=== PATIENT | female | born 1995 | race Caucasian/White ===

== ENCOUNTER 2019-11-05 01:38 | Emergency (ER) | payer BC ==
[2019-11-05 01:55] VITALS: BP 134/78; PULSE 81; RESP 18; TEMP 98.2
--- NOTE | 2019-11-05 01:57 | ED ---
General Adult HPI - General Chief complaint: Extremity Injury, Upper Stated complaint: Left arm pain Time Seen by Provider: 11/05/19 01:56 Source: patient Mode of arrival: ambulatory Limitations: physical limitation - History of Present Illness Initial comments: Renea is a previously healthy 24-year-old female who presents the ER today for evaluation of aching pain radiating from her wrist of her arm. Patient reports she's intermittently had pain similar to this in both hands however today she went hiking with her mom. She states she didn't have any discomfort while kayaking but since then has been having aching pain that radiates from her left wrist up her arm towards her elbow. Patient is taking Tylenol with no relief. She denies any falls or injuries. Patient works as a grocery store broadcast checker and does have repetitive motion of her hands throughout the day all day. - Related Data Allergies Allergy/AdvReac Type Severity Reaction Status Date / Time No Known Allergies Allergy Verified 11/05/19 01:54 Review of Systems ROS Statement: Those systems with pertinent positive or pertinent negative responses have been documented in the HPI. ROS Other: All systems not noted in ROS Statement are negative. Past Medical History Past Medical History: No Reported History History of Any Multi-Drug Resistant Organisms: None Reported Past Surgical History: No Surgical Hx Reported Past Psychological History: No Psychological Hx Reported Smoking Status: Never smoker Past Alcohol Use History: Occasional Past Drug Use History: None Reported General Exam - General Exam Comments Initial Comments: Physical Exam GENERAL: Patient is well-developed and well-nourished. Patient is nontoxic and well-hydrated and is in no distress. HENT: Normocephalic, Atraumatic. EYES: PERRL, EOMI PULMONARY: Unlabored respirations. CARDIOVASCULAR: RRR Warm and well perfused extremities ABDOMEN: Non-distended SKIN: No rashes or bruising : Deferred NEUROLOGIC: Alert and oriented Normal speech Normal gait MUSCULOSKELETAL: Moving all extremities with no apparent injury Tinel's positive on bilateral wrist the patient reports worsening discomfort on left arm PSYCHIATRIC: No SI/HI Limitations: physical limitation Course Vital Signs 11/05/19 01:52 Temperature 98.2 F Pulse Rate 81 Respiratory 18 Rate Blood Pressure 134/78 O2 Sat by Pulse 99 Oximetry Medical Decision Making - Medical Decision Making The patient was seen and evaluated, history was obtained from the patient History and physical exam are concerning for repetitive use injury, patient has reproducible discomfort positive Tinel's sign. I discussed with the patient that she is likely suffering from an acute exacerbation of carpal tunnel. Patient is given a printed copy of the [place] out of orthopedic surgery, exercise recommendations. She advised to continue these exercises, follow with her primary care physician to discuss the need for possibly wearing a brace at night if she has persistent symptoms and follow with orthopedics if she has persistent symptoms physician discuss surgical management. All questions pertaining care were answered return parameters were discussed patient was discharged home in stable condition. Disposition Clinical Impression: Carpal tunnel syndrome of left wrist Disposition: HOME SELF-CARE Condition: Stable Instructions (If sedation given, give patient instructions): Paresthesia (ED), Carpal Tunnel Surgery (DC) Is patient prescribed a controlled substance at d/c from ED?: No Referrals: None,Stated [Primary Care Provider] - 1-2 days
== END 2019-11-05 02:14 | disposition home or self-care (01) ==
LOC: EC 01:38
DX: G56.02 Carpal tunnel syndrome, left upper limb (principal)
CPT/HCPCS: 99283

== ENCOUNTER → 2023-01-09 | Outpatient (CLI) | payer BC ==
[2023-01-10 02:37] LABS: Alternaria alternata IgE 0.24 kU/L; Aspergillus fumagatus IgE <0.10 kU/L; Birch IgE <0.10 kU/L; Cat Epith & Dander IgE 2.52 kU/L; Cladosporian herbarum IgE <0.10 kU/L; Clam IgE <0.10 kU/L; Cockroach IgE <0.10 kU/L; Codfish IgE <0.10 kU/L; Dermato. farinae IgE <0.10 kU/L; Dog Dander IgE 4.69 kU/L; Egg White IgE <0.10 kU/L; Elm IgE <0.10 kU/L; Maple (Box Elder) IgE <0.10 kU/L; Oak IgE <0.10 kU/L; Peanut IgE <0.10 kU/L; Ragweed,Common IgE <0.10 kU/L; Red Top (Bentgrass) IgE 0.54 kU/L; Scallop IgE <0.10 kU/L; Shrimp IgE <0.10 kU/L; Soybean IgE <0.10 kU/L; Walnut IgE (Food) <0.10 kU/L
== END | disposition home or self-care (01) ==
LOC: LABWHC1 14:48
PROVIDERS: ATTEND Internal Medicine Critical Care Medicine
DX: J45.909 Unspecified asthma, uncomplicated (principal)
CPT/HCPCS: 36415; 82785; 85008; 86003